=== PATIENT | female | born 1990 | race Two or more races ===

== ENCOUNTER 2021-10-11 08:00 | Outpatient (CLI) | payer OTHER | END 2021-10-11 08:30 | disposition home or self-care (01) | LOC: PPH VACUNA 08:00 | PROVIDERS: ATTEND Emergency Medicine Pediatric Emergency Medicine | DX: Z23 Encounter for immunization (principal); Z71.85 Encounter for immunization safety counseling ==

== ENCOUNTER 2022-03-25 16:46 | Emergency (ER) | payer OTHER ==
[~2022-03-25] VITALS: Ht 160 cm; Wt 68.0 kg
== END 2022-03-25 21:09 | disposition home or self-care (01) ==
LOC: ER 16:46
DX: M62.830 Muscle spasm of back (principal); M54.50 Low back pain, unspecified

== ENCOUNTER 2023-06-04 23:16 | Emergency (ER) | payer OTHER ==
[~2023-06-04] VITALS: Ht 160 cm; Wt 68.0 kg
[2023-06-05 02:24] LABS: HEMATOCRIT 37.7 % (36.0-45.00); HEMOGLOBIN 12.9 g/dL (12.0-15.00); MEAN CELL VOLUME 85.2 fL (80.00-100.00); MEAN CORPUSCULAR HEMOGLOBIN 29.2 pg (27.00-32.0); MEAN CORPUSCULAR HGB CONC 34.2 g/dl (32.0-36.0); PLATELET COUNT 227 K/uL (150-450); RED BLOOD COUNT 4.42 M/uL (4.00-6.00); RED CELL DISTRIBUTION WIDTH 13.7 % (11.5-14.5)
== END 2023-06-05 05:15 | disposition home or self-care (01) ==
LOC: ER 23:16
DX: J10.1 Influenza due to other identified influenza virus with other respiratory manifestations (principal); R11.10 Vomiting, unspecified; Z20.822 Contact with and (suspected) exposure to COVID-19

== ENCOUNTER 2023-12-19 03:33 | Emergency (ER) | payer OTHER ==
[~2023-12-19] VITALS: Ht 160 cm; Wt 71.2 kg
[2023-12-19] MEDS ORDERED: KETOROLAC TROMETHAMINE 60 MG VIAL IM STA (04:38)
[2023-12-19] MEDS ORDERED: KETOROLAC TROMETHAMINE 60 MG VIAL IM ONE (04:42)
[2023-12-19] MEDS ORDERED: DOLOGESIC-DF 51 EACH PO (06:04)
[2023-12-19] MEDS ORDERED: ORASEP SPRAY30 ML MM (06:04)
== END 2023-12-19 06:19 ==
LOC: ER 03:33
DX: U07.1 COVID-19 (principal)